=== PATIENT | female | born 1975 | race Asian ===

== ENCOUNTER 2016-05-06 00:28 | Inpatient (IN) | payer SELFPAY ==
[~2016-05-06] VITALS: Ht 160 cm; Wt 62.6 kg
[2016-05-06] MEDS ORDERED: LACTATED RINGERS 500 ML IV SCH (01:15)
[2016-05-06] MEDS ORDERED: METHYLERGONOVINE 0.2 MG/ML AMP IM PRN ×2 (01:15→12:45)
[2016-05-06] MEDS ORDERED: GLUCOPHAGE500 MG PO (01:15)
[2016-05-06] MEDS ORDERED: OXYTOCIN 10 UNITS/ML VIAL IM SCH (01:15)
[2016-05-06] MEDS ORDERED: MISOPROSTOL 100 MCG TAB RC ONE (01:15)
[2016-05-06] MEDS ORDERED: NALBUPHINE HYDROCHLORIDE 10 MG/ML VIAL IVP PRN (01:15)
[2016-05-06] MEDS ORDERED: CARBOPROST 250 MCG/ML AMP IM PRN (01:15)
[2016-05-06] MEDS ORDERED: PROMETHAZINE 25 MG/ML VIAL IVP PRN (01:15)
[2016-05-06] MEDS ORDERED: PRENATAL VITAMI1 TA2 PO (01:15)
[2016-05-06 01:20] VITALS: BP 124/77
[2016-05-06] MEDS ORDERED: MISOPROSTOL 25 MCG TAB VG SCH (02:00)
[2016-05-06] MEDS ORDERED: NATURAL IRON65 MG PO (02:37)
[2016-05-06] MEDS ORDERED: MISOPROSTOL 25 MCG TAB ONE ×2 (02:53→15:16)
[2016-05-06] MEDS: LACTATED RINGERS 1,000 ML IV SCH ×4 (02:53→07:09)
[2016-05-06] MEDS ORDERED: ROPIVACAINE 0.2%/NS PREMIX 250 ML EPI ONE (05:45)
[2016-05-06] MEDS ORDERED: OXYTOCIN 20 UNITS/LR PREMIX 1,000 ML IV SCH (06:00)
[2016-05-06] MEDS ORDERED: ROPIVACAINE 0.2%/NS PREMIX 250 ML EPI SCH (06:05)
[2016-05-06] MEDS ORDERED: OXYTOCIN 20 UNITS/LR PREMIX 1,000 ML IV ONE (06:37)
[2016-05-06] MEDS ORDERED: OXYTOCIN 10 UNITS/ML VIAL ONE (07:51)
--- NOTE | 2016-05-06 09:47 | NUR ---
PATIENT HAS BEEN SCREENED AND CATEGORIZED LOW NUTRITION RISK. PATIENT WILL BE SEEN WITHIN 7 DAYS OF ADMISSION. 05/12/[address]
[2016-05-06] MEDS ORDERED: METHYLERGONOVINE 0.2 MG TAB PO PRN (12:45)
[2016-05-06] MEDS ORDERED: WITCH HAZEL 40 PAD PACKAGE TP PRN (12:45)
[2016-05-06] MEDS ORDERED: OXYTOCIN 10 UNITS/ML VIAL IM PRN (12:45)
[2016-05-06] MEDS ORDERED: BENZOCAINE/MENTHOL 20%-0.5% 60 GM CAN TP PRN (12:45)
[2016-05-06] MEDS ORDERED: TEMAZEPAM 15 MG CAP PO PRN (12:45)
[2016-05-06] MEDS ORDERED: SODIUM PHOSPHATE 118 ML ENEM RC PRN (12:45)
[2016-05-06] MEDS ORDERED: BISACODYL 10 MG SUPP RC PRN (12:45)
[2016-05-06] MEDS ORDERED: MEASLES, MUMPS, AND RUBELLA 1 VIAL SQVAC PRN (12:45)
[2016-05-06] MEDS ORDERED: HYDROcodone/APAP 5/325 MG 1 TAB TAB PO PRN (12:45)
[2016-05-06] MEDS ORDERED: SENNA 8.6 MG TAB PO SCH (21:00)
[2016-05-06] MEDS ORDERED: DOCUSATE SOD/SENNA 50/8.6 MG 1 TAB PO SCH (21:00)
[2016-05-06] MEDS ORDERED: BISACODYL 5 MG TABEC PO SCH (21:00)
[2016-05-06] MEDS: CALCIUM POLYCARBOPHIL 625 MG TAB PO SCH (22:01)
[2016-05-07] MEDS: HYDROcodone/APAP 5/325 MG 1 TAB TAB PO PRN ×3 (04:05→12:45)
[2016-05-07] MEDS: CALCIUM POLYCARBOPHIL 625 MG TAB PO SCH ×2 (08:20→12:45)
[2016-05-07] MEDS ORDERED: DOCUSATE SOD/SENNA 50/8.6 MG 1 TAB PO SCH (21:00)
== END 2016-05-07 17:55 | disposition home or self-care (01) | DRG 775 ==
LOC: MLD 00:28 → MFCC 11:25
PROVIDERS: ADMIT Obstetrics & Gynecology; ATTEND Obstetrics & Gynecology
PROC: 10E0XZZ Delivery of Products of Conception, External Approach (ICD-10-PCS; principal; 2016-05-06)
PROC: 0HQ9XZZ Repair Perineum Skin, External Approach (ICD-10-PCS; 2016-05-06)
PROC: 00HU33Z Insertion of Infusion Device into Spinal Canal, Percutaneous Approach (ICD-10-PCS; 2016-05-06)
PROC: 3E0R3CZ (ICD-10-PCS; 2016-05-06)
DX: O24.425 Gestational diabetes mellitus in childbirth, controlled by oral hypoglycemic drugs (principal); O75.89 Other specified complications of labor and delivery; O70.0 First degree perineal laceration during delivery; Z37.0 Single live birth; Z3A.40 40 weeks gestation of pregnancy; O09.523 Supervision of elderly multigravida, third trimester